=== PATIENT | male | born 1980 | race African-American/Black ===

== ENCOUNTER 2023-11-18 21:41 | Emergency (ER) | payer BC, MEDICAID ==
[~2023-11-18] VITALS: Ht 188 cm; Wt 70.3 kg
[2023-11-18 21:53] VITALS: BP 120/93; PULSE 110; RESP 16; TEMP 97.8; O2SAT 100
== END 2023-11-19 04:52 | disposition left against medical advice (07) ==
LOC: MED 21:41
DX: Z48.00 Encounter for change or removal of nonsurgical wound dressing (principal); Z53.21 Procedure and treatment not carried out due to patient leaving prior to being seen by health care provider

== ENCOUNTER 2023-12-14 13:19 | Emergency (ER) | payer BC, MEDICAID ==
[~2023-12-14] VITALS: Ht 188 cm; Wt 70.3 kg
[2023-12-14 13:20] VITALS: BP 133/89; PULSE 113; RESP 18; TEMP 99; O2SAT 94
[2023-12-14 13:30] VITALS: BP 112/63; PULSE 113; RESP 16; TEMP 98
[2023-12-14] MEDS: ACETAMINOPHEN EXTRA STRENGTH 500 MG TAB PO ONE (16:07)
[2023-12-14] MEDS: ALUMINUM HYD/MAG/SIMETHICONE 30 ML UDC PO ONE (16:07)
[2023-12-14] MEDS ORDERED: MIRABULK PO (16:29)
[2023-12-14] MEDS: SODIUM PHOSPHATE 118 ML ENEM RC ONE (16:32)
[2023-12-14] MEDS: POLYETHYLENE GLYCOL 17 GM/PKT PO ONE (16:45)
[2023-12-14] MEDS: GLYCERIN ADULT 1 SUPP RC ONE (16:45)
[2023-12-14 18:39] VITALS: BP 131/85; PULSE 67; RESP 18; O2SAT 98
== END 2023-12-14 18:39 | disposition home or self-care (01) ==
LOC: MED 13:19
DX: K56.41 Fecal impaction (principal); J45.909 Unspecified asthma, uncomplicated; Z98.890 Other specified postprocedural states; Z79.899 Other long term (current) drug therapy; Z88.6 Allergy status to analgesic agent
CPT/HCPCS: 99285